=== PATIENT | male | born 1990 | race African-American/Black ===

== ENCOUNTER 2021-03-29 23:10 | Emergency (ER) | END 2021-03-30 00:27 | disposition home or self-care (01) | LOC: ERS 23:10 | DX: B34.9 Viral infection, unspecified (principal) | CPT/HCPCS: 99283 ==

== ENCOUNTER 2021-04-03 22:18 | Emergency (ER) | payer SELFPAY ==
[2021-04-03] MEDS ORDERED: Dicyclomine 20 MG TAB ONE (23:14)
[2021-04-03] MEDS ORDERED: Ondansetron ODT 8 MG TAB ONE (23:14)
== END 2021-04-03 22:55 | disposition home or self-care (01) ==
LOC: ERS 22:18
DX: K52.9 Noninfective gastroenteritis and colitis, unspecified (principal)
CPT/HCPCS: 99283; Q0162

== ENCOUNTER 2021-07-19 21:04 | Emergency (ER) | payer BC, SELFPAY ==
[2021-07-19] MEDS ORDERED: Dicyclomine 20 MG/2 ML VIAL ONE (21:17)
== END 2021-07-19 21:36 | disposition home or self-care (01) ==
LOC: ERS 21:04
DX: R19.7 Diarrhea, unspecified (principal); R10.84 Generalized abdominal pain
CPT/HCPCS: 96372; 99283; J0500